=== PATIENT | female | born 1990 | race Caucasian/White ===

== ENCOUNTER 2021-11-26 13:39 | Emergency (ER) | payer OTHER, SELFPAY ==
[2021-11-26 14:06] VITALS: BP 117/71; PULSE 124; RESP 20; TEMP 37.3; O2SAT 100
--- NOTE | 2021-11-26 15:27 | PC.NURSE ---
Unsuccessful blood attempt x3, 2 separate nurses. Phlebotomy called, no answer, LVM with request to call back.
--- NOTE | 2021-11-26 17:03 | ED.GENADULT ---
HPI - General Adult General Chief complaint: Dental/Oral <ALIREZA Solis Last Filed: 11/26/21 20:11> Stated complaint: dental pain <ALIREZA Solis Last Filed: 11/26/21 20:11> Time Seen by Provider: 11/26/21 15:29 <ALIREZA Solis Last Filed: 11/26/21 20:11> Source: patient <ALIREZA Solis Last Filed: 11/26/21 20:11> Mode of arrival: ambulatory <ALIREZA Slois Filed: 11/26/21 20:11> Limitations: no limitations <ALIREZA Solis Filed: 11/26/21 20:11> History of Present Illness HPI narrative: Patient is a 31 y/o female who presents to the ED with c/o dental pain and L axillary pain. Patient reports having a left upper dental abscess. She was diagnosed with this 2 days ago at a local urgent care. She was prescribed clindamycin and has been taking this as prescribed. She also reports having a recent abscessed region in her right axilla. This is since resolved. She now has an abscessed region in her left axilla. She states the urgent care told her her infection was spreading. Denies any fevers. Has been taking Tylenol for the pain. No nausea, vomiting, difficulty swallowing or breathing. <ALIREZA Solis Last Filed: 11/26/21 20:11> Related Data Allergies/adverse reactions: Allergies Allergy/AdvReac Type Severity Reaction Status Date / Time No Known Allergies Allergy Verified 11/26/21 15:11 <ALIREZA Solis Last Filed: 11/26/21 20:11> Review of Systems Review of Systems: CONSTITUTIONAL: Denies fever, chills, or sweats. ENT: Reports L upper dental pain. Denies dysphagia. CARDIOVASCULAR: Denies chest pain. RESPIRATORY: Denies dyspnea. GASTROINTESTINAL: Denies nausea, vomiting. SKIN: Reports abscesses to axillas. <ALIREZA Solis Filed: 11/26/21 20:11> All systems reviewed & are unremarkable except as noted in HPI and below <Morena Burkett PA-C - Last Filed: 11/26/21 20:11> PMFSH Past Medical History Medical History: Medical History (Updated 11/27/21 @ 00:00 by Rob De La Fuente) No pertinent past medical history <Morena Burkett PA-C - Last Filed: 11/26/21 20:11> Surgical History Surgical History: Surgical History (Updated 11/26/21 @ 17:06 by Morena Burkett PA-C) No pertinent past surgical history <Morena Burkett PA-C - Last Filed: 11/26/21 20:11> Social History Social History: Social History (Updated 11/26/21 @ 17:06 by Morena Burkett PA-C) Smoking status: Current every day smoker Substance use: former Substance use type: heroin <Morena Burkett PA-C - Last Filed: 11/26/21 20:11> Exam Narrative: GENERAL: Well appearing, well-nourished, non-toxic, in no acute distress. HEAD: Normocephalic, atraumatic. THROAT: Pharynx clear, no exudate. MMs moist. Dental caries to left upper teeth. No obvious fractured teeth. Tenderness to palpation to surrounding gumline of posterior left upper molar. No focal abscess or palpable fluctuance. No swelling of facial cheek/neck. AXILLARY: Healed sinus tracking and scarring to R axillary region. L axilla with inflammatory nodule, tenderness to palpation, fluctuant center. Findings consistent with hidradenitis suppurativa. NECK: Supple. No adenopathy, no masses. RESPIRATORY: Airway patent, respirations nonlabored. Clear to auscultation bilaterally, no rales, rhonchi, wheezing. CARDIOVASCULAR: Regular rate and rhythm without murmurs, rubs, or gallops. Peripheral pulses 2+ and equal bilaterally. MUSCULOSKELETAL: Moves all extremities. Strength/ROM intact without gross deformities. SKIN: Warm, dry, normal color. No rashes. NEURO: A&O X3. Speech clear. Cranial nerves II-XII grossly intact. Steady gait. No ataxic movements. PSYCHIATRIC: Anxious. Normal interaction. <Morena Burkett PA-C - Last Filed: 11/26/21 20:11> Course VASCULAR NURSE/JACKY
[2021-11-26 17:07] LABS: Basophils Percent Auto 0.3 % (0.2-1.2); Eosinophils Percent Auto 0.1 % (0-4.4); Hematocrit 49.7 % (37.0-47.0); Immature Granulocyte Absolute 0.02 K/mm3 (0.00-0.031); Immature Granulocyte Percent A 0.3 % (0-0.5); Lymphocytes Absolute Auto 1.98 K/mm3 (0.9-3.2); Lymphocytes Percent Auto 27.8 % (18.3-44.2); Mean Corpuscular HGB Conc 32.2 g/dl (32-36); Mean Corpuscular Hemoglobin 31.7 pg (26-34); Mean Corpuscular Volume 98.4 fl (80-100); Mean Platelet Volume 9.5 fl (7.4-10.4); Monocytes Absolute Auto 0.6 K/mm3 (0.1-0.6); Neutrophils Absolute Auto 4.5 K/mm3 (1.3-6.7); Neutrophils Percent Auto 62.5 % (45.5-73.1); Platelet Count Result 215 k/mm3 (150-375); Red Blood Count 5.05 M/mm3 (4.2-5.4); Red Cell Distribution Width 12.1 % (11.5-14.5); White Blood Count 7.1 K/mm3 (4.5-10.0)
[2021-11-26 17:17] LABS: Alanine Aminotransferase 34 U/L (6-35); Albumin Level 4.7 g/dL (3.5-5.1); Alkaline Phosphatase 96 U/L (38-126); Anion Gap 14 mmol/L (8-16); Aspartate Amino Transferase 31 U/L (14-36); Bilirubin,Total 0.2 mg/dL (0.2-1.3); Blood Urea Nitrogen 11 mg/dL (7-17); Calcium 9.2 mg/dL (8.4-10.2); Carbon Dioxide 27 mmol/L (22-30); Chloride 99 mmol/L (98-107); Estimated CRCL calculation 78 ml/min; Estimated Glomerular Filt Rate > 60; Glucose 80 mg/dL (65-110); Sodium 140 mmol/L (137-145)
[2021-11-26 18:27] VITALS: BP 115/70; PULSE 105; RESP 20; O2SAT 99
== END 2021-11-26 18:29 | disposition home or self-care (01) ==
PROVIDERS: Emergency Provider Emergency Medicine; PCP Nurse Practitioner Family
DX: K02.9 Dental caries, unspecified (principal); L02.412 Cutaneous abscess of left axilla; F17.200 Nicotine dependence, unspecified, uncomplicated
CPT/HCPCS: 36415; 80053; 85025; 99283